=== PATIENT | female | born 1940 | race Caucasian/White ===

== ENCOUNTER → 2023-06-07 10:21 | Outpatient (CLI) | payer MEDICARE, MEDICAID, SELFPAY ==
--- NOTE | 2023-06-08 01:16 | DI.NM.S_ITS ---
DATE OF SERVICE: 06/07/2023 PROCEDURE PERFORMED: Pharmacologic vasodilator stress and rest myocardial perfusion imaging with gating to assess ejection fraction and regional wall motion. ORDERING PROVIDER: Raine Patino M.D. INDICATIONS: The patient is an 83-year-old obese female with bradycardia and exertional dyspnea. CARDIAC STRESS: Per protocol, 0.4 mg of regadenoson was infused with a normal hemodynamic response. She had no chest discomfort but minimal dyspnea and a mild headache. Her resting ECG showed sinus bradycardia at [address] segments. There were no significant ST-segment shifts or arrhythmias with stress. Per protocol, 24.7 millicuries of technetium-99m Myoview was injected and she was imaged 15 minutes after using a gated SPECT acquisition protocol. Earlier in the day while at rest, she had been injected with 11.9 millicuries of technetium-99m Myoview and was imaged 15 minutes later, again using a gated SPECT acquisition protocol. FINDINGS: 1. Raw data: There is fairly poor myocardial tracer uptake with prominent, dense breast shadows that clearly produce marked attenuation over the majority of the left ventricle but sparing the inferoseptal region. This is more prominent on the post-stress images. The patient was unable to lie prone to assess for any attenuation artifact. The lung/heart ratio is normal at 0.32 with a normal TID ratio of 0.88. 2. Quantitated gated SPECT: Post-stress ejection fraction is estimated at 60% without any focal wall motion abnormality. The resting ejection fraction is estimated at 53%, but visually appears to be similar to that of the post-stress ejection fraction. Left ventricular volumes are significantly increased with a resting end-diastolic volume of 209 mL. 3. Myocardial perfusion imaging: Post-stress supine images show a relative paucity of counts globally except in the mid to distal inferoseptal region, producing a hot spot, likely due to breast attenuation artifact. Otherwise, there is no obvious focal perfusion defect. Unfortunately, there are no prone images to assess for attenuation artifact. The resting images are of poor quality but globally with increased counts relative to the stress images, but with a defect predominantly in the mid to distal anterior septum. When the inferoseptal region on the stress images is excluded from analysis, there is no obvious improvement in perfusion on the resting images compared to the stress images. IMPRESSION: 1. Probable normal myocardial perfusion study for ischemia but with reduced sensitivity because of poor image quality. 2. A mid to distal inferoseptal hot spot significantly affects the interpretation, but is likely a result of breast attenuation artifact, and when that inferoseptal area is excluded from analysis, there are no significant, obvious perfusion defects. 3. Normal left ventricular systolic function without focal wall motion abnormality, but significantly increased left ventricular volumes. 4. No angina or ECG evidence of ischemia with pharmacologic vasodilator stress. The patient had sinus bradycardia at rest but no other arrhythmias. MARCOS HUNT - CLEMENTE/terry/NICHOLAS doc#: [id number]/job#: [id number] dd: 06/07/2023 16:31:00 dt: 06/08/2023 00:59:00 DICTATING MD/COPIES TO: Jose Vail MD; Raine Patino M.D. COPIES MNE: NICOLE;
== END ==
PROVIDERS: PCP Nurse Practitioner; Referring Provider Internal Medicine Cardiovascular Disease; Visit Provider Internal Medicine Cardiovascular Disease
DX: I50.30 Unspecified diastolic (congestive) heart failure (principal); R00.1 Bradycardia, unspecified; E66.9 Obesity, unspecified; R06.00 Dyspnea, unspecified
CPT/HCPCS: 78452; 93017; A9502; J2785